=== PATIENT | female | born 1995 | race Caucasian/White ===

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

== ENCOUNTER 2017-01-09 17:46 | Emergency (ER) | payer OTHER ==
[~2017-01-09] VITALS: Ht 165.1 cm; Wt 61.8 kg
[2017-01-09 18:33] VITALS: BP 118/74
--- NOTE | 2017-01-09 20:27 | NUR ---
Patient ambulated to [facility] to be evaluated as fast track by Dr. Turpin. RN evaluating patient.
--- NOTE | 2017-01-09 20:35 | NUR ---
Dr. Turpin evaluating patient in [facility].
[2017-01-09 21:00] VITALS: BP 111/75
--- NOTE | 2017-01-09 21:00 | NUR ---
Patient discharged with v/s stable. Written and verbal after care instructions given and explained. Patient alert, oriented and verbalized understanding of instructions. Ambulatory with steady gait. All questions addressed prior to discharge. ID band removed. Patient advised to follow up with PMD. Rx of PYRIDIUM 200MG TID, MACROBID 100MG BID given. Patient educated on indication of medication including possible reaction and side effects. Opportunity to ask questions provided and answered.
== END 2017-01-09 21:00 | disposition home or self-care (01) ==
LOC: MED 17:46
DX: N39.0 Urinary tract infection, site not specified (principal)
CPT/HCPCS: 81002; 81025; 99283

== ENCOUNTER 2017-12-21 12:51 | Emergency (ER) | payer OTHER ==
[~2017-12-21] VITALS: Ht 162.6 cm; Wt 59.9 kg
[2017-12-21 13:01] VITALS: BP 137/93
--- NOTE | 2017-12-21 13:10 | NUR ---
PATIENT PRESENTS TO ED WITH COMPLAINTS OF RIGHT SIDED MIGRAINE HEADACHE X 2 DAYS. PATIENT STATES SHE TRIED TAKING ADVIL WITH NO RELIEF. DENIES D; SKIN IS PINK/WARM/DRY; AAOX4 WITH EVEN AND STEADY GAIT; LUNGS CLEAR BL; HR EVEN AND REGULAR; PT DENIES ANY FEVER, CP, SOB, OR COUGH AT THIS TIME; PATIENT STATES PAIN OF 10/10 AT THIS TIME; VSS; PATIENT POSITIONED FOR COMFORT; HOB ELEVATED; BEDRAILS UP X1; BED DOWN. ER MD MADE AWARE OF PT STATUS.
[2017-12-21] MEDS ORDERED: MORPHINE SULFATE 2 MG/ML SYR IM ONE (13:40)
[2017-12-21] MEDS ORDERED: KETOROLAC 60 MG/2 ML VIAL IM ONE (13:40)
[2017-12-21] MEDS ORDERED: ONDANSETRON 4 MG ODT PO ONE (13:40)
[2017-12-21 14:55] VITALS: BP 137/93
--- NOTE | 2017-12-21 14:55 | NUR ---
Patient discharged with v/s stable. Written and verbal after care instructions given and explained. Patient alert, oriented and verbalized understanding of instructions. Ambulatory with steady gait. All questions addressed prior to discharge. ID band removed. Patient advised to follow up with PMD. Rx of fioricet given. Patient educated on indication of medication including possible reaction and side effects. Opportunity to ask questions provided and answered.
== END 2017-12-21 14:55 | disposition home or self-care (01) ==
LOC: MED 12:51
DX: G44.009 Cluster headache syndrome, unspecified, not intractable (principal); M41.9 Scoliosis, unspecified
CPT/HCPCS: 96372; 99284; J1885; J2270; S0119

== ENCOUNTER 2019-09-14 01:33 | Emergency (ER) | payer OTHER ==
[~2019-09-14] VITALS: Ht 162.6 cm; Wt 57.6 kg
[2019-09-14 01:39] VITALS: BP 104/57
--- NOTE | 2019-09-14 01:46 | NUR ---
BIBA TO BED 04 WITH STEADY GAIT.
--- NOTE | 2019-09-14 01:51 | NUR ---
DR GARCIA AT BEDSIDE EVALUATING PATIENT.
--- NOTE | 2019-09-14 01:58 | NUR ---
24 Y/O FEMALE PRESENTS TO ER WITH LEFT HAND, THUMB, INDEX, AND MIDDLE FINGER CREASE GREASE BURN, 9/10 PAIN. PT STATES SHE WAS COOKING AND TIMMONS FELL FROM THE STOVE, SHE TRIED TO CATCH IT, AND GREASE SPLATTERED ON HER HAND, PT THEN RAN COLD WATER ON HAND FOR 5 MIN. THEN APPLIED ALOE VERA TO AFFECTED AREA. RADIAL PULSE STRONG, AND REGULAR, CAP REFILL <3SEC. HAND IS RED, AND HAS BURNING SENSATION, NO BLISTERING NOTED. R/R EQUAL, AND UNLABORED, DENIES SOB. LMP 08/08/19 SIDE RAIL X1, BED IN LOW POSITION, WILL CONTINUE TO MONITOR. PMH: ARTHRITIS NKDA
[2019-09-14] MEDS ORDERED: BACITRACIN OINT 500 UNITS/GM PKT TP ONE ×3 (01:59→02:00)
[2019-09-14] MEDS ORDERED: IBUPROFEN 600 MG TAB PO ONE (02:00)
--- NOTE | 2019-09-14 02:02 | NUR ---
PT MEDICATED WITH MOTRIN PO. NADR. TOLERATED WELL
--- NOTE | 2019-09-14 02:09 | NUR ---
PLACED BACITRACIN ON PT'S LEFT HAND ON WEBBING OF THUMB INBETWEEN INDEX FINGER AND ON THE DORSAL PORTION ON THE PT'S INDEX FINGER AND MIDDLE FINGER. AFTER PLACED XEROFORM ON SAME LOCATIONS, WRAPED PT'S FINGERS AND HAND WITH NON-ADH BANDAGE AND WRAPED WITH COBAND.
[2019-09-14 02:22] VITALS: BP 104/57
--- NOTE | 2019-09-14 02:22 | NUR ---
Patient discharged with v/s stable. Written and verbal after care instructions given and explained. Patient verbalized understanding. Ambulatory with steady gait. All questions addressed prior to discharge. Advised to follow up with PMD.
== END 2019-09-14 02:22 | disposition home or self-care (01) ==
LOC: MED 01:33
DX: T23.102A Burn of first degree of left hand, unspecified site, initial encounter (principal); Z79.899 Other long term (current) drug therapy; X10.2XXA Contact with fats and cooking oils, initial encounter; Y93.89 Activity, other specified; Y92.89 Other specified places as the place of occurrence of the external cause; Y99.8 Other external cause status
CPT/HCPCS: 16020; 90471; 90715; 99283; 99284

== ENCOUNTER 2019-12-28 17:57 | Emergency (ER) | payer OTHER ==
[~2019-12-28] VITALS: Ht 162.6 cm; Wt 56.7 kg
[2019-12-28 17:59] VITALS: BP 142/70
--- NOTE | 2019-12-28 18:25 | NUR ---
mary ellen pabon at bedside evaluating pt.
[2019-12-28] MEDS ORDERED: KETOROLAC 30 MG/ML VIAL IM ONE (18:30)
--- NOTE | 2019-12-28 18:30 | NUR ---
C/O L FOOT PAIN. METAL APPROX 30 POUNDS FELL ON LEFT FOOT X TODAY.PT AOX 4 ,AFIBRILE , AMBULATORY WITH STEADY GAIT, PAIN TO TOUCH 5TH DIGIT OF LEFT FOOT. MED HX : APPENDECTOMY
--- NOTE | 2019-12-28 18:43 | NUR ---
TERRENCE PRADO AT BEDSIDE PLACING ORTHO SHOES.
[2019-12-28 18:44] VITALS: BP 142/70
--- NOTE | 2019-12-28 18:48 | NUR ---
Patient discharged with v/s stable. Written and verbal after care instructions given and explained regarding foot contunsion . Patient alert, oriented and verbalized understanding of instructions. Ambulatory with steady gait. All questions addressed prior to discharge. ID band removed. Patient advised to follow up with PMD. Rx of ibuprofen given. Patient educated on indication of medication including possible reaction and side effects. Opportunity to ask questions provided and answered.Excuse for work given.
== END 2019-12-28 18:48 | disposition home or self-care (01) ==
LOC: MED 17:57
DX: S90.122A Contusion of left lesser toe(s) without damage to nail, initial encounter (principal); Z79.899 Other long term (current) drug therapy; W22.8XXA Striking against or struck by other objects, initial encounter; Y93.89 Activity, other specified; Y92.89 Other specified places as the place of occurrence of the external cause; Y99.8 Other external cause status
CPT/HCPCS: 73630; 96372; 99283; J1885; Q0092

== ENCOUNTER 2020-06-09 23:38 | Emergency (ER) | payer OTHER ==
[~2020-06-09] VITALS: Ht 170.2 cm; Wt 61.2 kg
[2020-06-09 23:42] VITALS: BP 133/82
--- NOTE | 2020-06-09 23:42 | NUR ---
to bed via w/c
[2020-06-09] MEDS ORDERED: HYDROcodone/APAP 5/325 MG 1 TAB TAB PO ONE (23:50)
--- NOTE | 2020-06-10 00:03 | NUR ---
PT SLIPPED AND FELL LANDING ON HER LEFT HIP AND UPPER LEG, PT STATES SHE HEARD A POPPING AND CRACKING SOUND WHEN SHE FELL. UNABLE TO PUT PRESSURE ON LEG DUE TO PAIN. ABLE TO MOVE TOES ON LEFT FOOT HOWEVER VERY PAINFUL. PALPABLE PEDAL PULSE. SKIN INTACT, NO NOTICABLE DEFORMITIES TO LEG, HIP, OR FOOT. PT PLACED IN GOWN, BED IN LOWEST POSITION AND SIDERAIL UP X 1. NKA HX - SCOLIOSIS
--- NOTE | 2020-06-10 00:29 | NUR ---
X-RAY AT BEDSIDE TO TRANSPORT PT VIA GURNEY
--- NOTE | 2020-06-10 00:45 | NUR ---
PT RETURNED FROM X-RAY
--- NOTE | 2020-06-10 00:55 | NUR ---
PT STATES PAIN IS 11/11, MD SOLANO AWARE
--- NOTE | 2020-06-10 01:38 | NUR ---
PT WAS GIVEN CRUTCHES. PTS SHOWED GOOD USE OF CRUTCHES WITH NO ISSUE.
[2020-06-10 01:50] VITALS: BP 133/82
--- NOTE | 2020-06-10 01:50 | NUR ---
Patient discharged with v/s stable. Written and verbal after care instructions given and explained. Patient verbalized understanding. Ambulatory to home WITH CRUTCHES. All questions addressed prior to discharge. Advised to follow up with PMD.
== END 2020-06-10 01:50 | disposition home or self-care (01) ==
LOC: MED 23:38
DX: S70.02XA Contusion of left hip, initial encounter (principal); I51.9 Heart disease, unspecified; W18.39XA Other fall on same level, initial encounter; Y93.89 Activity, other specified; Y92.89 Other specified places as the place of occurrence of the external cause; Y99.8 Other external cause status
CPT/HCPCS: 72170; 99283; 99284

== ENCOUNTER 2021-02-07 21:10 | Emergency (ER) | payer OTHER ==
[~2021-02-07] VITALS: Ht 162.6 cm; Wt 61.2 kg
[2021-02-07 21:28] VITALS: BP 137/66
--- NOTE | 2021-02-07 21:31 | NUR ---
to lobby a/w bed ambulatory
--- NOTE | 2021-02-07 22:25 | NUR ---
PT TAKEN TO XRAY
--- NOTE | 2021-02-07 22:49 | NUR ---
seen and examined by LUIS FELIPE.
[2021-02-07] MEDS ORDERED: IBUP-2230 PO (23:06)
--- NOTE | 2021-02-07 23:10 | NUR ---
PT TAKEN TO CHAIR C
[2021-02-07 23:29] VITALS: BP 137/66
== END 2021-02-07 23:29 | disposition home or self-care (01) ==
LOC: MED 21:10
DX: M79.675 Pain in left toe(s) (principal); Z79.899 Other long term (current) drug therapy
CPT/HCPCS: 73660; 99283

== ENCOUNTER 2021-03-25 13:39 | Emergency (ER) | payer OTHER ==
[~2021-03-25] VITALS: Ht 165.1 cm; Wt 56.2 kg
[~2021-03-25 13:39] MED LIST changes: +IBUP-2230 PO
[2021-03-25 13:59] VITALS: BP 128/73
--- NOTE | 2021-03-25 14:00 | NUR ---
PT AMBULATED TO BED 4
--- NOTE | 2021-03-25 14:08 | NUR ---
25 Y/O F PRESENTS TO ED WITH LOW BACK PAIN 10/10 SHARP. PT STATES SHE WAS CLEANING WITH HER MOM AND STATES "I MIGHT HAVE PULLED SOMETHING IN MY BACK". DENIES ANY HEAVY LIFTING OR FALL. STATES PAIN STARTS IN LOWER BACK AND RADIATES DOWN L LEG CAUSING CRAMPING SENSATION. PAIN IS AGITATED WHEN SITTING. DENIES DYSURIA OR HEMATURIA. DENIES N/V/D; SKIN IS PINK/WARM/DRY; AAOX4 WITH EVEN AND STEADY GAIT; LUNGS CLEAR BL; HR EVEN AND REGULAR; PT DENIES ANY FEVER, CP, SOB, OR COUGH AT THIS TIME; PATIENT STATES PAIN OF 10/10 AT THIS TIME; VSS; PATIENT POSITIONED FOR COMFORT; HOB ELEVATED; BEDRAILS UP X2; BED DOWN. ER MD MADE AWARE OF PT STATUS. PMH: DEGENERATIVE ARTHRITIS, MUSCLE SPASMS NKA MED: DENIES
[2021-03-25] MEDS ORDERED: methocarbamoL 500 MG TAB PO SCH (14:20)
[2021-03-25] MEDS ORDERED: KETOROLAC 30 MG/ML VIAL IM ONE (14:20)
[2021-03-25] MEDS ORDERED: CRUSHER, PILL MC ONE (14:46)
[2021-03-25] MEDS ORDERED: METH-1681 PO (15:51)
[2021-03-25] MEDS ORDERED: NAPR-54 PO (15:51)
[2021-03-25] MEDS ORDERED: LIDO1ADH47 TP (15:51)
--- NOTE | 2021-03-25 16:08 | NUR ---
Patient discharged with v/s stable. Written and verbal after care instructions ABOUT SCIAT[employer] given and explained. Patient alert, oriented and verbalized understanding of instructions. Ambulatory with steady gait. All questions addressed prior to discharge. ID band removed. Patient advised to follow up with PMD. Rx of LIDOCAINE, ROBAXIN, NAPROXEN given. Patient educated on indication of medication including possible reaction and side effects. Opportunity to ask questions provided and answered.
== END 2021-03-25 16:08 | disposition home or self-care (01) ==
LOC: MED 13:39
DX: M54.42 Lumbago with sciatica, left side (principal); Z79.1 Long term (current) use of non-steroidal anti-inflammatories (NSAID)
CPT/HCPCS: 81002; 81025; 96372; 99283; J1885

== ENCOUNTER 2021-04-08 04:44 | Emergency (ER) | payer OTHER ==
[~2021-04-08] VITALS: Ht 170.2 cm; Wt 61.2 kg
[~2021-04-08 04:44] MED LIST changes: +LIDO1ADH47 TP; +METH-1681 PO; +NAPR-54 PO
[2021-04-08 04:45] VITALS: BP 137/60
--- NOTE | 2021-04-08 04:45 | NUR ---
to bed via w/c
--- NOTE | 2021-04-08 05:00 | NUR ---
25 yo f bib self with c/c of 10/10 lower back pain/spasm 2wks. pt states she stepped off a curb yesterday and believes that may have triggered it. reports this pain comes and goes since she was 8 yrs old. pain radiates to LE with walking, unrelieved with position change. pt is taking methocarbamol that was prescribed last time she came to this er. bed locked in lowest position, side rails x1 and all needs met at this time. lmp yesterday has implant denies hx, rx and allergies
[2021-04-08] MEDS ORDERED: KETOROLAC 60 MG/2 ML VIAL IM ONE (05:50)
--- NOTE | 2021-04-08 06:02 | NUR ---
santiago kwaw at bedside.
[2021-04-08] MEDS ORDERED: NAPR-54 PO (06:09)
[2021-04-08 06:12] VITALS: BP 137/60
== END 2021-04-08 06:12 | disposition home or self-care (01) ==
LOC: MED 04:44
DX: S33.9XXA Sprain of unspecified parts of lumbar spine and pelvis, initial encounter (principal); F17.210 Nicotine dependence, cigarettes, uncomplicated; Z90.49 Acquired absence of other specified parts of digestive tract; Z98.890 Other specified postprocedural states; Z79.899 Other long term (current) drug therapy; W19.XXXA Unspecified fall, initial encounter; Y93.89 Activity, other specified; Y92.89 Other specified places as the place of occurrence of the external cause; Y99.8 Other external cause status
CPT/HCPCS: 81002; 81025; 96372; 99283; J1885

== ENCOUNTER 2021-07-30 20:11 | Emergency (ER) | payer OTHER ==
[~2021-07-30] VITALS: Ht 170.2 cm; Wt 52.6 kg
[2021-07-30 21:15] VITALS: BP 122/72
[2021-07-30] MEDS ORDERED: KETOROLAC 30 MG/ML VIAL IM ONE (22:25)
[2021-07-31] MEDS ORDERED: NAPR-54 PO (00:08)
[2021-07-31] MEDS ORDERED: CYCL-711 PO (00:08)
[2021-07-31 00:42] VITALS: BP 119/74
== END 2021-07-31 00:42 | disposition home or self-care (01) ==
LOC: MED 20:11
DX: M54.50 Low back pain, unspecified (principal); F17.210 Nicotine dependence, cigarettes, uncomplicated; Z90.49 Acquired absence of other specified parts of digestive tract; Z79.899 Other long term (current) drug therapy
CPT/HCPCS: 72100; 81002; 81025; 96372; 99283; J1885

== ENCOUNTER 2022-07-22 14:26 | Emergency (ER) | payer OTHER ==
[~2022-07-22] VITALS: Ht 162.6 cm; Wt 52.6 kg
[~2022-07-22 14:26] MED LIST changes: +CYCL-711 PO
[2022-07-22 14:47] VITALS: BP 113/78
--- NOTE | 2022-07-22 14:49 | NUR ---
27/F WALKED IN C/O LOW BACK PAIN THAT GOT WORSE 3 DAYS AGO. 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 REPORTS CHRONIC PAIN THAT GOT WORSE 3 DAYS AGO. DENIES ANY FALL OR INJURY RECENTLY. PMH: HERNIATED DISC, APPENDECTOMY.
[2022-07-22] MEDS ORDERED: KETOROLAC 30 MG/ML VIAL IM ONE (15:25)
[2022-07-22 15:31] LABS: BILIRUBIN,URINE NEGATIVE (NEGATIVE); BLOOD, URINE NEGATIVE (NEGATIVE); COLOR,URINE YELLOW (YELLOW); LEUKOCYTE ESTERASE ,URINE 2+ (NEGATIVE); NITRITE, URINE NEGATIVE (NEGATIVE); UGLUCOSE NEGATIVE (NEGATIVE)
[2022-07-22 15:37] LABS: APPEARANCE,URINE HAZY (CLEAR)
[2022-07-22 15:49] LABS: RBC,URINE NONE SEEN /HPF (0-5); WBC,URINE 0-5 /HPF (0-5)
[2022-07-22] MEDS ORDERED: HYDROcodone/APAP 5/325 MG 1 TAB TAB PO ONE (16:10)
[2022-07-22] MEDS ORDERED: ONDANSETRON 4 MG ODT PO ONE (16:10)
[2022-07-22] MEDS ORDERED: IBUP-2213 PO (16:45)
[2022-07-22] MEDS ORDERED: ACET-8905 PO (16:45)
[2022-07-22] MEDS ORDERED: LID5T TP (16:45)
[2022-07-22 16:59] VITALS: BP 118/69
--- NOTE | 2022-07-22 16:59 | NUR ---
Patient discharged with v/s stable. Written and verbal after care instructions FOR CHRONIC BACK PAIN given and explained. Patient alert, oriented and verbalized understanding of instructions. Ambulatory with steady gait. All questions addressed prior to discharge. ID band removed. Patient advised to follow up with PMD. Rx of HYDROCODONE, IBUPROFEN AND LIDOCAINE HYD given. Opportunity to ask questions provided and answered.
== END 2022-07-22 16:59 | disposition home or self-care (01) ==
LOC: MED 14:26
DX: M54.50 Low back pain, unspecified (principal); I50.9 Heart failure, unspecified; Z79.899 Other long term (current) drug therapy
CPT/HCPCS: 81001; 81025; 87086; 96372; 99283; J1885; Q0162

== ENCOUNTER 2023-01-06 21:29 | Emergency (ER) | payer OTHER ==
[~2023-01-06] VITALS: Ht 162.6 cm; Wt 57.2 kg
[~2023-01-06 21:29] MED LIST changes: +ACET-8905 PO; +IBUP-2213 PO; +LID5T TP
[2023-01-06 21:40] VITALS: BP 122/68; PULSE 111; RESP 17; TEMP 98.8; O2SAT 98
[2023-01-06 22:00] VITALS: O2SAT 98
[2023-01-06 22:31] LABS: APPEARANCE,URINE CLOUDY (CLEAR); BILIRUBIN,URINE NEGATIVE (NEGATIVE); BLOOD, URINE 2+ (NEGATIVE); COLOR,URINE YELLOW (YELLOW); LEUKOCYTE ESTERASE ,URINE 3+ (NEGATIVE); NITRITE, URINE NEGATIVE (NEGATIVE); PROTEIN,URINE 1+ (NEGATIVE); UGLUCOSE NEGATIVE (NEGATIVE)
[2023-01-06 22:36] LABS: RBC,URINE 11-20 (MOD) /HPF (0-5)
[2023-01-06 22:37] LABS: BACTERIA,URINE >30 (MANY) /HPF (None Seen); MUCUS,URINE 1+ /LPF (None Seen); SQUAMOUS EPITHELIAL CELL,UR 0-3 (FEW) /LPF (0-3 (FEW)); WBC,URINE TOO MANY TO COUNT /HPF (0-5)
[2023-01-06] MEDS ORDERED: CEPHALEXIN SUSP. 250 MG/5 ML PO ONE (22:55)
[2023-01-06] MEDS ORDERED: ACETAMINOPHEN EXTRA STRENGTH 500 MG TAB PO ONE (23:20)
[2023-01-06] MEDS ORDERED: KETOROLAC 60 MG/2 ML VIAL IM ONE (23:20)
[2023-01-06] MEDS ORDERED: ACET-10509 PO (23:23)
[2023-01-06] MEDS ORDERED: IBUP-2213 PO (23:23)
[2023-01-06] MEDS ORDERED: PYR100 PO (23:23)
[2023-01-06] MEDS ORDERED: CEPH250C16 PO (23:23)
== END 2023-01-06 23:41 | disposition home or self-care (01) ==
LOC: MED 21:29
DX: N39.0 Urinary tract infection, site not specified (principal); I25.10 Atherosclerotic heart disease of native coronary artery without angina pectoris; Z79.899 Other long term (current) drug therapy
CPT/HCPCS: 81001; 81025; 87086; 96372; 99283; J1885